=== PATIENT | female | born 1995 | race American Indian/Alaskan Native ===

== ENCOUNTER 2021-01-29 09:51 | Emergency (ER) | payer SELFPAY ==
[2021-01-29 09:59] VITALS: BP 109/59
[2021-01-29 11:48] LABS: Basophils % (Auto) 0.7 % (0.0-1.8); Eosinophils # (Auto) 0.1 K/mm3 (0.0-0.4); Eosinophils % (Auto) 1.3 % (0.0-4.3); Hematocrit 36.6 % (30.3-42.9); Hemoglobin 12.3 gm/dl (10.1-14.3); Lymphocytes # (Auto) 1.7 K/mm3 (1.2-5.4); Lymphocytes % (Auto) 25.6 % (13.4-35.0); Mean Corpuscular HGB Conc 34 % (30-34); Mean Corpuscular Volume 83 fl (79-97); Monocytes # (Auto) 0.4 K/mm3 (0.0-0.8); Platelet Count 269 K/mm3 (140-440); Red Blood Count 4.43 M/mm3 (3.65-5.03); Red Cell Distribution Width 14.5 % (13.2-15.2)
--- NOTE | 2021-01-29 11:57 | Emergency Department Report ---
ED General Adult HPI - General Chief complaint: Vaginal Bleeding Stated complaint: 2MO BLEEDING Time Seen by Provider: 01/29/21 10:19 Source: patient Mode of arrival: Ambulatory Limitations: No Limitations - History of Present Illness Initial comments: 25-year-old -[place] female patient presents with complaints of vaginal bleeding in for the past 3 weeks Patient states the bleeding has been intermittent and denies any abdominal pain. The bleeding is currently mild and spotty, however in the first week was heavy with some clots. She denies any urinary symptoms, vaginal discharge/dyspareunia, fever/chills/sweats, or stool changes. She is G3, . She has not seen her FINISH GRINDER as of yet. She denies any other past medical history. - Related Data Previous Rx's Medication Instructions Recorded Last Taken Type Amoxicillin/Potassium Clav 1 each PO BID 5 Days #10 tablet 01/29/21 Unknown Rx [Augmentin 875-125 Tablet] Allergies Allergy/AdvReac Type Severity Reaction Status Date / Time No Known Allergies Allergy Verified 01/29/21 09:57 ED Review of Systems ROS: Stated complaint: 2MO BLEEDING Other details as noted in HPI Constitutional: denies: chills, fever, malaise Respiratory: denies: cough, shortness of breath Cardiovascular: denies: chest pain Gastrointestinal: denies: abdominal pain, nausea, vomiting Genitourinary: abnormal menses. denies: urgency, dysuria, frequency, hematuria, discharge, dyspareunia Musculoskeletal: denies: back pain Skin: denies: rash Hematological/Lymphatic: denies: swollen glands ED Past Medical Hx - Past Medical History Previous Medical History?: No - Surgical History Past Surgical History?: No - Medications Home Medications: Home Medications Medication Instructions Recorded Confirmed Last Taken Type Amoxicillin/Potassium Clav 1 each PO BID 5 Days #10 tablet 01/29/21 Unknown Rx [Augmentin 875-125 Tablet] ED Physical Exam - General Limitations: No Limitations General appearance: alert, in no apparent distress - Head Head exam: Present: atraumatic, normocephalic - Eye Eye exam: Present: normal appearance. Absent: scleral icterus - Respiratory Respiratory exam: Present: normal lung sounds bilaterally. Absent: respiratory distress - Cardiovascular Cardiovascular Exam: Present: regular rate, normal rhythm - GI/Abdominal GI/Abdominal exam: Present: soft, normal bowel sounds. Absent: distended, tenderness, guarding, rebound, rigid - Neurological Exam Neurological exam: Present: alert, oriented X3 - Psychiatric Psychiatric exam: Present: normal affect, normal mood - Skin Skin exam: Present: warm, dry, intact, normal color. Absent: rash ED Course Vital Signs 01/29/21 09:58 Temperature 98.7 F Pulse Rate 76 Respiratory 19 Rate Blood Pressure 109/59 O2 Sat by Pulse 100 Oximetry ED Medical Decision Making - Lab Data Result diagrams: 01/29/21 11:26 01/29/21 11:26 - Radiology Data Radiology results: report reviewed ULTRASOUND OBSTETRIC INDICATION: Vaginal bleeding, 6 weeks . TECHNIQUE: Transabdominal and Transvaginal. COMPARISON: None available. FINDINGS: GESTATIONAL SAC: None seen. YOLK SAC: None seen. EMBRYO/FETUS: None seen. ADNEXA: No significant abnormality. FREE FLUID: None. ADDITIONAL FINDINGS: None. IMPRESSION: 1. No intrauterine or ectopic is identified. 2. No other acute findings. - Medical Decision Making 25-year-old -[place] female patient presents with complaints of vaginal bleeding in for the past 3 weeks Patient states the bleeding has been intermittent and denies any abdominal pain. The bleeding is currently mild and spotty, however in the first week was heavy with some clots. She denies any urinary symptoms, vaginal discharge/dyspareunia, fever/chills/sweats, or stool changes. She is G3, . She has not seen her FINISH GRINDER as of yet. She denies any other past medical history. Beta-hCG in the 200s. Ultrasound is negative for any IUP. Patient states he first noted a positive urine test at the end of December. Given this information and findings, suspect miscarriage. Recommend patient follows up in 2 to 3 days in ED for repeat beta hCG or follow-up with FINISH GRINDER. Discussed in detail signs and symptoms that should prompt immediate return to the ED with patient verbalizes understanding. UA shows UTI, patient prescribed Augmentin. Her vitals are normal, she is well-appearing, she is stable for discharge home Critical care attestation.: If time is entered above; I have spent that time in minutes in the direct care of this critically ill patient, excluding procedure time. ED Disposition Clinical Impression: Threatened miscarriage in early , UTI (urinary tract infection) Disposition: 01 HOME / SELF CARE / HOMELESS Is pt being admited?: No Condition: Stable Instructions: Urinary Tract Infection, Adult, [id number], Activity Restriction During Additional Instructions: Return to the Emergency Department in 2 days for a repeat hormone level Prescriptions: Amoxicillin/Potassium Clav [Augmentin 875-125 Tablet] 1 each PO BID 5 Days #10 tablet Referrals: [facility] [Provider Group] - 3-5 Days [facility] [Provider Group] - 3-5 Days Forms: Work/School Release Form(ED)
[2021-01-29 12:08] LABS: Alanine Aminotransferase 11 units/L (7-56); Albumin 4.5 g/dL (3.9-5); Blood Urea Nitrogen 9 mg/dL (7-17); Calcium 9.1 mg/dL (8.4-10.2); Hemolysis Index 4
[2021-01-29 12:11] LABS: BUN/Creatinine Ratio 13
[2021-01-29 13:07] LABS: Bacteria,Urine 1+ /HPF (Negative); Bilirubin,Urine NEG (Negative); Blood,Urine NEG (Negative); Color,Urine Yellow (Yellow); Mucus,Urine FEW /HPF; Protein,Urine <15 mg/dL mg/dL (Negative)
--- NOTE | 2021-01-29 13:20 | Ultrasound Report ---
ULTRASOUND OBSTETRIC INDICATION: Vaginal bleeding, 6 weeks . TECHNIQUE: Transabdominal and Transvaginal. COMPARISON: None available. FINDINGS: GESTATIONAL SAC: None seen. YOLK SAC: None seen. EMBRYO/FETUS: None seen. ADNEXA: No significant abnormality. FREE FLUID: None. ADDITIONAL FINDINGS: None. IMPRESSION: 1. No intrauterine or ectopic is identified. 2. No other acute findings. Signer Name: Ron Mondragon MD Signed: 01/29/2021 1:16 PM Workstation Name: [id number]
== END 2021-01-29 14:20 | disposition home or self-care (01) ==
LOC: ED 09:51
DX: O20.0 Threatened abortion (principal); O23.41 Unspecified infection of urinary tract in pregnancy, first trimester; N39.0 Urinary tract infection, site not specified; Z3A.01 Less than 8 weeks gestation of pregnancy
CPT/HCPCS: 36415; 76801; 76817; 80053; 81001; 84702; 85025; 86900; 86901; 87076; 87086; 87186; 99284

== ENCOUNTER 2021-02-15 12:12 | Emergency (ER) | payer SELFPAY ==
--- NOTE | 2021-02-15 12:24 | Emergency Department Report ---
ED Female HPI - General Chief complaint: Vaginal Bleeding Stated complaint: BLEEDING, 1 MONTH Time Seen by Provider: 02/15/21 12:20 Source: patient Mode of arrival: Ambulatory Limitations: No Limitations - History of Present Illness Initial comments: Patient is a 25-year-old female that comes to the emergency room complaining of bleeding during . She states that she has not followed up with an [facility]BI[employer] LEAD DEVELOPER since her last visit here in the ER. 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 She left the ER with discharge instructions and did not follow-up. She states she has been too busy working. So she came to the ER today MD Complaint: vaginal bleeding -: week(s) Consistency: constant Improves with: none Worsens with: none Are you Now?: Yes Associated Symptoms: denies other symptoms - Related Data Sexually active: Yes Previous Rx's Medication Instructions Recorded Last Taken Type Amoxicillin/Potassium Clav 1 each PO BID 5 Days #10 tablet 01/29/21 Unknown Rx [Augmentin 875-125 Tablet] Allergies Allergy/AdvReac Type Severity Reaction Status Date / Time No Known Allergies Allergy Verified 01/29/21 09:57 ED Review of Systems ROS: Stated complaint: BLEEDING, 1 MONTH Other details as noted in HPI Comment: All other systems reviewed and negative ED Past Medical Hx - Past Medical History Previous Medical History?: No Additional medical history: denies - Surgical History Past Surgical History?: No Additional Surgical History: denies - Medications Home Medications: Home Medications Medication Instructions Recorded Confirmed Last Taken Type Amoxicillin/Potassium Clav 1 each PO BID 5 Days #10 tablet 01/29/21 Unknown Rx [Augmentin 875-125 Tablet] ED Physical Exam - General Limitations: No Limitations General appearance: alert, in no apparent distress - Head Head exam: Present: atraumatic, normocephalic - Eye Eye exam: Present: normal appearance - ENT ENT exam: Present: mucous membranes moist - Neck Neck exam: Present: normal inspection - Respiratory Respiratory exam: Present: normal lung sounds bilaterally. Absent: respiratory distress - Cardiovascular Cardiovascular Exam: Present: regular rate, normal rhythm. Absent: systolic murmur, diastolic murmur, rubs, gallop - GI/Abdominal GI/Abdominal exam: Present: soft, normal bowel sounds - Extremities Exam Extremities exam: Present: normal inspection - Back Exam Back exam: Present: normal inspection - Neurological Exam Neurological exam: Present: alert, oriented X3 - Psychiatric Psychiatric exam: Present: normal affect, normal mood - Skin Skin exam: Present: warm, dry, intact, normal color. Absent: rash ED Course - Reevaluation(s) Reevaluation #1: 02/15/21 14:54 not in room RN does know where pt is pt not in ultrasound Reevaluation #2: 02/15/21 14:54 RN notified pt is not in room ED Medical Decision Making - Lab Data Result diagrams: 02/15/21 12:31 - Medical Decision Making Labs 02/15/21 02/15/21 02/15/21 12:31 12:31 13:20 WBC 6.4 RBC 4.38 Hgb 11.8 Hct 36.1 MCV 83 MCH 27 L MCHC 33 RDW 14.2 Plt Count 272 HCG, Quant 0.796 Urine Color Yellow Urine Turbidity Hazy Urine pH 5.0 Ur Specific [place] 1.018 Urine Protein 30 mg/dl Urine Glucose (UA) Neg Urine Ketones Neg Urine Blood Lg Urine Nitrite Pos Urine Bilirubin Neg Urine Urobilinogen 2.0 Ur Leukocyte Esterase Sm Urine WBC (Auto) 20.0 H Urine RBC (Auto) 127.0 U Epithel Cells (Auto) 11.0 Urine Bacteria (Auto) 1+ Urine Mucus Few PT ELOPED ER PRIOR TO U/S BEING DONE. - Differential Diagnosis ro retained product Critical care attestation.: If time is entered above; I have spent that time in minutes in the direct care of this critically ill patient, excluding procedure time. ED Disposition Clinical Impression: Vaginal bleeding Disposition: 07 LEFT AWOL/ELOPED Is pt being admited?: No Does the pt Need Aspirin: No Condition: Stable Referrals: PRIMARY CARE, [Primary Care Provider] - 3-5 Days Time of Disposition: 14:54
[2021-02-15 13:08] LABS: Hematocrit 36.1 % (30.3-42.9); Hemoglobin 11.8 gm/dl (10.1-14.3); Mean Corpuscular HGB Conc 33 % (30-34); Mean Corpuscular Volume 83 fl (79-97); Platelet Count 272 K/mm3 (140-440); Red Blood Count 4.38 M/mm3 (3.65-5.03); Red Cell Distribution Width 14.2 % (13.2-15.2)
[2021-02-15 13:35] LABS: Bacteria,Urine 1+ /HPF (Negative); Bilirubin,Urine NEG (Negative); Blood,Urine LG (Negative); Color,Urine Yellow (Yellow); Mucus,Urine FEW /HPF
[2021-02-15] MEDS ORDERED: LIDOCAINE-MPF (1%) 10 MG/1 ML VIAL 5 ML INFILTRATI ONE (14:22)
== END 2021-02-15 14:50 | disposition left against medical advice (07) ==
LOC: ED 12:12
DX: N93.9 Abnormal uterine and vaginal bleeding, unspecified (principal)
CPT/HCPCS: 36415; 81001; 84702; 85027; 87076; 87086; 87186; 99283; J0696

== ENCOUNTER 2021-05-22 09:37 | Emergency (ER) | payer MEDICAID, OTHER ==
[2021-05-22 10:05] VITALS: BP 114/77
--- NOTE | 2021-05-22 10:28 | Emergency Department Report ---
ED HPI - General Chief complaint: Vaginal Bleeding Stated complaint: 15WKS CRAMPING AND BLEEDING Time Seen by Provider: 05/22/21 10:16 Source: patient Mode of arrival: Ambulatory Limitations: No Limitations - History of Present Illness Initial comments: 26-year-old female presents to the ER today with complaints of vaginal bleeding, low abdominal cramping she is currently about 15 weeks . Patient states that she started with some light bleeding yesterday, but this morning she started with intermittent abdominal cramping. She states that the bleeding has gotten screwmaker automatic since it started yesterday. She denies any UTI symptoms or any abnormal vaginal discharge. She is Ab1. She denies any recent strenuous activity or sexual intercourse. She states that she has started care with the cardiology specialist, but they have not done an ultrasound as yet. Her next follow-up appointment is next Monday. She denies any significant past medical history. MD Complaint: abdominal pain, vaginal bleeding -: days(s) (1) - Related Data Previous Rx's Medication Instructions Recorded Last Taken Type Amoxicillin/Potassium Clav 1 each PO BID 5 Days #10 tablet 01/29/21 Unknown Rx [Augmentin 875-125 Tablet] Allergies Allergy/AdvReac Type Severity Reaction Status Date / Time No Known Allergies Allergy Verified 01/29/21 09:57 ED Review of Systems ROS: Stated complaint: 15WKS CRAMPING AND BLEEDING Other details as noted in HPI Comment: All other systems reviewed and negative Eyes: denies: eye pain, eye discharge, vision change ENT: denies: ear pain, throat pain Respiratory: denies: cough, shortness of breath, wheezing Gastrointestinal: abdominal pain. denies: nausea, vomiting, diarrhea, constip ation, hematemesis, melena, hematochezia Genitourinary: denies: urgency, dysuria, frequency, hematuria, discharge, abnormal menses, dyspareunia Musculoskeletal: denies: back pain, joint swelling, arthralgia Skin: denies: rash, lesions, change in color, change in hair/nails Neurological: denies: headache, weakness, paresthesias, abnormal gait, vertigo Psychiatric: denies: anxiety, depression, auditory hallucinations, visual hallucinations, homicidal thoughts, suicidal thoughts Hematological/Lymphatic: denies: easy bleeding, easy bruising, swollen glands ED Past Medical Hx - Past Medical History Previous Medical History?: Yes Additional medical history: Vaginal dleivery x 2 - Surgical History Additional Surgical History: denies - Medications Home Medications: Home Medications Medication Instructions Recorded Confirmed Last Taken Type Amoxicillin/Potassium Clav 1 each PO BID 5 Days #10 tablet 01/29/21 Unknown Rx [Augmentin 875-125 Tablet] ED Physical Exam - General Limitations: No Limitations General appearance: alert, in no apparent distress - Head Head exam: Present: atraumatic, normocephalic, normal inspection - Eye Eye exam: Present: normal appearance, PERRL, EOMI Pupils: Present: normal accommodation - Neck Neck exam: Present: normal inspection, full ROM. Absent: meningismus - Respiratory Respiratory exam: Present: normal lung sounds bilaterally. Absent: respiratory distress, wheezes, rales, rhonchi, stridor - Cardiovascular Cardiovascular Exam: Present: regular rate, normal rhythm, normal heart sounds - GI/Abdominal GI/Abdominal exam: Present: soft, tenderness (Mild suprapubic tenderness without guarding or rebound). Absent: distended, guarding, rebound - Neurological Exam Neurological exam: Present: alert, oriented X3, CN II-XII intact, normal gait - Psychiatric Psychiatric exam: Present: normal affect, normal mood - Skin Skin exam: Present: intact ED Course Vital Signs 05/22/21 10:04 Temperature 98.6 F Pulse Rate 66 Respiratory 18 Rate Blood Pressure 114/77 O2 Sat by Pulse 100 Oximetry ED Medical Decision Making - Lab Data Result diagrams: 05/22/21 10:58 05/22/21 10:58 - Radiology Data Radiology results: report reviewed Patient: NATA GARCIA MR#: [id number] : 1995 Acct:[id number] Age/Sex: 26 / F ADM Date: 05/22/21 Loc: ED Attending Dr: Ordering Physician: ARCHANA FELIX Date of Service: 05/22/21 Procedure(s): US OB transvaginal Accession Number(s): [id number] cc: ARCHANA FELIX ULTRASOUND OBSTETRIC INDICATION / CLINICAL INFORMATION: 15 weeks preg/vag bleeding/low abd pain. Clinical Gestational Age (GA) in weeks, days: 14 weeks 4 days TECHNIQUE: Transvaginal. COMPARISON: Ultrasound 01/29/2021 FINDINGS: Single intrauterine . Biparietal Diameter = 3.08 cm = 15, 5 weeks, days Head Circumference = 11.01 cm = 15, 2 weeks, days Abdominal Circumference = 8.80 cm = 15, 0 weeks, days Femur Length = 1.73 cm = 15, 1 weeks, days Average Ultrasound Age (AUA) = 15, 2 weeks, days Heart Rate: 153 beats per minute. Estimated Weight in grams (if calculated): Not calculated Estimated Weight Growth Percentile (if calculated): Not calculated Position: cephalic. Cervix: closed. Length in cm (if measured): Not calculated Placenta: Fundal and free of the os. Grade 1 placenta. Amniotic Fluid Volume: normal Amniotic Fluid Index (LEIDY) in cm (if calculated): Not calculated. Maternal Adnexa: No significant abnormality. IMPRESSION: 1. Single, living intrauterine with estimated sonographic age of 15 weeks 2 days. 2. No significant sonographic abnormality. Signer Name: Neftaly Britton MD Signed: 05/22/2021 12:39 PM Workstation Name: [id number] Transcribed By: DB Dictated By: NEFTALY BRITTON MD Electronically Authenticated By: NEFTALY BRITTON MD Signed Date/Time: 05/22/21 1239 DD/ 1237 TD/TT: Critical care attestation.: If time is entered above; I have spent that time in minutes in the direct care of this critically ill patient, excluding procedure time. ED Disposition Clinical Impression: Threatened miscarriage Disposition: 01 HOME / SELF CARE / HOMELESS Is pt being admited?: No Does the pt Need Aspirin: No Condition: Stable Instructions: Threatened Miscarriage, [id number] Additional Instructions: You can take Tylenol as needed to help with any pain. Your ultrasound today shows a 15-week 2-day live IUP without any acute abnormality. No significant abnormality on your work-up today. Recommend no strenuous activity or sexual intercourse until you follow-up with your SLEEP TECHNOLOGIST Monday. Return sooner if your symptoms worsen or changes in any way. Referrals: PRIMARY CARE, [Primary Care Provider] - 3-5 Days Forms: Work/School Release Form(ED) Time of Disposition: 12:59
[2021-05-22] MEDS ORDERED: ACETAMINOPHEN 325 MG TAB PO ONE (10:51)
[2021-05-22 11:20] LABS: Basophils % (Auto) 0.4 % (0.0-1.8); Eosinophils # (Auto) 0.1 K/mm3 (0.0-0.4); Hematocrit 36.1 % (30.3-42.9); Hemoglobin 11.8 gm/dl (10.1-14.3); Lymphocytes # (Auto) 1.5 K/mm3 (1.2-5.4); Mean Corpuscular HGB Conc 33 % (30-34); Mean Corpuscular Volume 84 fl (79-97); Monocytes # (Auto) 0.5 K/mm3 (0.0-0.8); Monocytes % (Auto) 6.8 % (0.0-7.3); Platelet Count 258 K/mm3 (140-440); Red Blood Count 4.31 M/mm3 (3.65-5.03); Red Cell Distribution Width 14.6 % (13.2-15.2)
[2021-05-22 11:35] LABS: Alanine Aminotransferase 18 units/L (7-56); Albumin 3.9 g/dL (3.9-5); Blood Urea Nitrogen 9 mg/dL (7-17); Calcium 8.4 mg/dL (8.4-10.2); Hemolysis Index 4
[2021-05-22 11:36] LABS: BUN/Creatinine Ratio 15
[2021-05-22 11:41] LABS: Amorphous Crystals,Urine 1+; Bilirubin,Urine NEG (Negative); Blood,Urine MOD (Negative); Color,Urine Yellow (Yellow); Mucus,Urine FEW /HPF; Protein,Urine <15 mg/dL mg/dL (Negative); Urobilinogen,Urine < 2.0 mg/dL (<2.0)
--- NOTE | 2021-05-22 12:44 | Ultrasound Report ---
ULTRASOUND OBSTETRIC INDICATION / CLINICAL INFORMATION: 15 weeks preg/vag bleeding/low abd pain. Clinical Gestational Age (GA) in weeks, days: 14 weeks 4 days TECHNIQUE: Transvaginal. COMPARISON: Ultrasound 01/29/2021 FINDINGS: Single intrauterine . Biparietal Diameter = 3.08 cm = 15, 5 weeks, days Head Circumference = 11.01 cm = 15, 2 weeks, days Abdominal Circumference = 8.80 cm = 15, 0 weeks, days Femur Length = 1.73 cm = 15, 1 weeks, days Average Ultrasound Age (AUA) = 15, 2 weeks, days Heart Rate: 153 beats per minute. Estimated Weight in grams (if calculated): Not calculated Estimated Weight Growth Percentile (if calculated): Not calculated Position: cephalic. Cervix: closed. Length in cm (if measured): Not calculated Placenta: Fundal and free of the os. Grade 1 placenta. Amniotic Fluid Volume: normal Amniotic Fluid Index (LEIDY) in cm (if calculated): Not calculated. Maternal Adnexa: No significant abnormality. IMPRESSION: 1. Single, living intrauterine with estimated sonographic age of 15 weeks 2 days. 2. No significant sonographic abnormality. Signer Name: Neftaly Britton MD Signed: 05/22/2021 12:39 PM Workstation Name: [id number]
== END 2021-05-22 13:15 | disposition home or self-care (01) ==
LOC: ED 09:37
DX: O20.0 Threatened abortion (principal); Z98.890 Other specified postprocedural states; Z3A.08 8 weeks gestation of pregnancy
CPT/HCPCS: 36415; 76817; 80053; 81001; 84702; 85025; 86900; 86901; 99284